=== PATIENT | female | born 1955 | race Caucasian/White ===

== ENCOUNTER → 2020-10-03 | Outpatient (CLI) | payer BC ==
[~2020-10-03] MED LIST: ALTACE2.5 MG PO; ASPIR 8181 MG PO; EFFIENT10 MG PO; IMDUR 30 MG TAB30 M1 PO; IMODIUM MULTI-1 EACH PO; LIPITOR40 MG PO; LOPERAMIDE1 MG/7.5 M PO; METOPROLOL SUCC25 M1 PO; NAPROXEN SODIU220 M2 PO; NITROGLYCERIN0.4 MG SL; TOPROL XL25 MG PO; TOPROL XL50 MG PO
== END ==
LOC: SJCVCIMAG 07:29
PROVIDERS: ATTEND Nuclear Medicine Nuclear Cardiology
DX: I70.201 Unspecified atherosclerosis of native arteries of extremities, right leg (principal); I72.2 Aneurysm of renal artery; M79.661 Pain in right lower leg; M79.662 Pain in left lower leg

== ENCOUNTER → 2020-10-09 | Outpatient (CLI) | payer BC | LOC: SJCVCIMAG 09:16 | PROVIDERS: ATTEND Nuclear Medicine Nuclear Cardiology | DX: I08.2 Rheumatic disorders of both aortic and tricuspid valves (principal); I27.20 Pulmonary hypertension, unspecified; I25.10 Atherosclerotic heart disease of native coronary artery without angina pectoris; I25.2 Old myocardial infarction; Z95.5 Presence of coronary angioplasty implant and graft ==

== ENCOUNTER 2020-10-19 08:00 | Inpatient (IN) | payer BC ==
[~2020-10-19] VITALS: Ht 162.6 cm; Wt 75.2 kg
[2020-10-19] VITALS (32 sets, daily range): BP systolic 84–124; BP diastolic 48–78
[2020-10-19 08:53] LABS: HEMATOCRIT 42.4 % (37.0-47.0); HEMOGLOBIN 14.1 gm/dL (12.0-15.0); MCH 32.1 pg (26.0-34.0); MCHC 33.3 g/dL (28.0-37.0); MCV 96.3 fL (80.0-100.0); RBC 4.41 mil/uL (4.20-5.00); RDW 14.7 % (10.5-14.5); WBC 9.9 thou/uL (4.0-11.0)
[2020-10-19 09:05] LABS: CALCIUM 9.1 mg/dL (8.5-10.1); CREATININE 0.9 mg/dL (0.6-1.0); POTASSIUM 3.9 mmol/L (3.5-5.1)
[2020-10-19] MEDS ORDERED: BIOTIN1 M1 PO (09:13)
[2020-10-19] MEDS ORDERED: FOSAMAX 70 MG T70 MG PO (09:13)
[2020-10-19] MEDS ORDERED: CRESTOR20 MG PO (09:19)
[2020-10-19] MEDS ORDERED: OMEPRAZOLE 20 M20 M1 PO (09:21)
[2020-10-19] MEDS ORDERED: CLARITIN10 M2 PO (09:21)
[2020-10-19 12:29] LABS: HEMATOCRIT 27.4 % (37.0-47.0)
[2020-10-19 13:44] LABS: HEMATOCRIT 35.5 % (37.0-47.0)
[2020-10-19 13:45] LABS: HEMOGLOBIN 11.3 gm/dL (12.0-15.0)
[2020-10-19 15:42] LABS: HEMOGLOBIN 10.9 gm/dL (12.0-15.0); MCH 31.5 pg (26.0-34.0); MCV 98.3 fL (80.0-100.0); RBC 3.47 mil/uL (4.20-5.00); RDW 14.9 % (10.5-14.5); WBC 14.1 thou/uL (4.0-11.0)
[2020-10-19] MEDS ORDERED: CLOPIDOGREL75 MG PO (16:29)
--- NOTE | 2020-10-19 17:58 | NUR ---
PATIENT ARRIVES TO ICU AT 1457 FROM COMPLIANCE REPRESENTATIVE DEALER. PATIENT EXPERIENCES HYPOTENSION AND BLEEDING DURING PROCEDURE. PATIENT HAD A RIGHT COMMON ILIAC PERFERATION. PATIENT HGB 10.1. BLOOD PRESSURE STABLE. SBP 90-110'S. MAPS >65. PAIN MEDICATION GIVEN PRN X1.
[2020-10-20] VITALS (7 sets, daily range): BP systolic 98–113; BP diastolic 54–64
[2020-10-20 03:54] LABS: CALCIUM 7.8 mg/dL (8.5-10.1); CREATININE 0.8 mg/dL (0.6-1.0); POTASSIUM 4.2 mmol/L (3.5-5.1)
[2020-10-20 04:34] LABS: HEMATOCRIT 29.1 % (37.0-47.0); HEMOGLOBIN 9.2 gm/dL (12.0-15.0); MCH 31.7 pg (26.0-34.0); MCHC 31.6 g/dL (28.0-37.0); RBC 2.91 mil/uL (4.20-5.00); RDW 15.1 % (10.5-14.5); WBC 11.6 thou/uL (4.0-11.0)
--- NOTE | 2020-10-20 05:04 | NUR ---
Patient was very stable overnight. Heart rate and rhythm stable; sinus in the 80's. Blood pressures stable; systolics in the low 100's. No pain. continued on 2l per NC overnight; 87-88% on room air while asleep. No nausea. Bilateral groins stable; dressings dry and intact, no hematoma. Pulses good. voiding adequate amounts per bedpan. AM labs noted. Hgb stable at 9.2. See documentation on interventions for assessment details. Patient is progressing towards goals.
--- NOTE | 2020-10-20 17:46 | NUR ---
PT ARRIVED TO UNIT FROM ICU APPROX 1615 PT ALERT ORIENTED VSS DENIES PAIN O2 SATS WNL 2L O2. FRIEND AT BEDSIDE. TELE STRIP PRINTED-ST. R AND L GROIN SITES REMAIN CDI, NO HEMTOMAS, SOFT. FOLLOW POC. WILL PASS ON REPORT TO KAYLIE RN.
[2020-10-21 03:24] LABS: HEMATOCRIT 24.3 % (37.0-47.0); HEMOGLOBIN 8.1 gm/dL (12.0-15.0); MCH 32.3 pg (26.0-34.0); MCHC 33.5 g/dL (28.0-37.0); MCV 96.6 fL (80.0-100.0); RBC 2.52 mil/uL (4.20-5.00); RDW 13.9 % (10.5-14.5); WBC 10.3 thou/uL (4.0-11.0)
[2020-10-21 06:05] VITALS: BP 102/59
--- NOTE | 2020-10-21 07:22 | NUR ---
ASSESSMENTS CHARTED, MEDS CHARTED GIVEN. PATIENT C/O ABDOMINAL PAIN DURING SHIFT. IS CONCERNED ABOUT GOING HOME WITH HER PAIN NOT UNDER CONTROL. BOTH GROIN SITES ARE CLEAN DRY AND INTACT. HGB PRIOR TO PROCEDURE WAS 14.2, AFTER PROCEDURE IT WAS 10.9. HER HGB HAS CONTINUED TO DROP AND IS NOW DOWN TO 8.1. FALL PRECAUTIONS IN PLACE DURING SHIFT.
[2020-10-21 08:02] VITALS: BP 109/60
[2020-10-21 09:36] LABS: CALCIUM 8.2 mg/dL (8.5-10.1); CREATININE 0.8 mg/dL (0.6-1.0); POTASSIUM 3.8 mmol/L (3.5-5.1)
--- NOTE | 2020-10-21 11:38 | NUR ---
AAOX4. CALM, COOPERATIVE. DISCHARGE DELAYED UNTIL TOMORROW D/T FALLING HGB AND PERSISTENT OXYGEN REQUIREMENTS. VIOLENT COUGH AT TIMES. FALL PRECAUTIONS IN PLACE. SR/ST WITH PAC'S PER TELE.
[2020-10-21 11:58] VITALS: BP 106/61
[2020-10-21 15:37] VITALS: BP 114/61
[2020-10-21 20:15] VITALS: BP 94/56
--- NOTE | 2020-10-22 02:40 | NUR ---
ASSESSMENTS CHARTED, MEDS CHARTED GIVEN. PATIENT'S PAIN LEVEL IS IMPROVING. NOW AT 2OR 310. PATIENT STILL ON 4 LITERS OXYBEN, NEEDS 5 WHEN AMBULATING. PATIENT STILL HAS NOT HAD A BOWEL MOVEMENT. WOULD LIKE A MILD LAXATIVE TO HELP. PLAN OF CARE IS TO CHECK CBC IN THE AM FOR HGB LEVEL, IF STABLE, PATIENT WILL PROBABLY DISCHARGE TODAY. FALL PRECAUTIONS IN PLACE DURING SHIFT.
[2020-10-22 03:05] LABS: HEMATOCRIT 23.1 % (37.0-47.0); HEMOGLOBIN 7.7 gm/dL (12.0-15.0); MCH 32.3 pg (26.0-34.0); MCHC 33.5 g/dL (28.0-37.0); MCV 96.5 fL (80.0-100.0); RBC 2.39 mil/uL (4.20-5.00); RDW 14.1 % (10.5-14.5); WBC 10.7 thou/uL (4.0-11.0)
[2020-10-22 04:45] VITALS: BP 107/57
[2020-10-22 07:15] VITALS: BP 99/66
--- NOTE | 2020-10-22 08:11 | NUR ---
ASSUMED PT CARE AT 0700. PT RESTING. ASSESSMENT PERFORMED AND CHARTED. VSS. WILL CONTINUE TO MONITOR AND FOLLOW POC.
[2020-10-22 08:22] LABS: % SATURATION 10 % (20-39); IRON 22 ug/dL (50-170); TIBC 215 ug/dL (250-450)
[2020-10-22 10:55] VITALS: BP 89/55
--- NOTE | 2020-10-22 11:41 | NUR ---
PT SITTING IN BED, NASAL CANNULA IS NOT ON PATIENTS FACE. VSS. WILL CONTINUE TO MONITOR AND FOLLOW POC.
--- NOTE | 2020-10-22 12:23 | CATHLAB ---
[facility] [place] [address] INVASIVE PROCEDURE REPORT Name: EMMY ZAVALA Room #: 200-I ADM IN M.R.#: [id number] Admission: 10/19/20 Attend Phys: Jg Jaramillo MD, Discharge: Date of : 53 Report #: [id number] THIS REPORT FOR: cc: Yajaira Ceron MD,Jg Rolon MD, MD [facility] ~ APPROVED REPORT Study performed: 10/19/2020 11:37:36 Patient Details Patient Status: Out-Patient Room #: The patient is a 65 year-old female Event Personnel Savage Ramos Interventional Radiologist, Savannah Horvath RN RN, Brandie Luque RTR Scrub, Martín Jain RTR Monitor, Jg Jaramillo Link Wire Fabric Machine Tender, Jerry Franco RTR Storage Battery Inspector And Tester, Mery Tuttle RTR, GILL BOX OPERATOR Storage Battery Inspector And Tester Procedures Performed Left Heart Cath w/or w/o Coronaries [id number] [facility] [address]12 Initial Mod Sed Same Phys/QHP Gr5y 280719 68786 Mod Sed Same Phys/QHP Ea 400054 Hemostasis w/ Mynx Procedure Narrative The was infiltrated with 1% Lidocaine subcutaneous anesthesia. A SHEATH BRITE-TIP 6F X 23CM ([id number]) sheath was inserted into the RFA^. Coronary angiography was performed using coronary diagnostic catheters. The right coronary system was accessed and visualized with a JR4 catheter. The left coronary system was accessed and visualized with a JL4 catheter. The left ventricle was accessed and visualized with a PIGTAIL catheter. Left ventricular/Aortic Valve gradient assessed via catheter pullback. Left ventriculogram was performed in 30 degree projection. Pre-demployment femoral angiogram was performed . Closure device was deployed with a 6 Fr MYNX CONTROL 6F/7F L#[id number]. There was no hematoma. This was a combination case for a lower extremity run-off with Dr. Savage Ramos. Intraoperative Conscious Sedation Sedation start time: 1003 Case end Time: 1226 Fentanyl 300 mcg Versed 2 mg [facility] [address] [place] [address] INVASIVE PROCEDURE REPORT Name: EMMY ZAVALA Room #: 200-I [facility]#: [id number] Admission: 10/19/20 Attend Phys: Jg Jaramillo, Discharge: Date of : 53 Report #: [id number] Fluoro Time: 24.51 minutes Dose: DAP 33048.50 cGycm2 3278 mGy Contrast Type and Amount: Visipaque 230 ml Hemodynamics The aortic pressure is 135/71 mmHg with a mean of 70 mmHg. The left ventricular pressure is 132/8 mmHg with a mean of mmHg. The left ventricular end diastolic pressure is 18 mmHg. PCI Technique Lesion Percutaneous coronary intervention was performed on the Common iliac. Conclusion #1. Normal left ventricular size inferior basilar hypokinesis EF 45% range. #2 left main short free of disease giving rise to LAD and circumflex. #3 the LAD with mild to moderate irregularity and calcification proximally. Diagonal branch mildly diseased no occlusive disease. #4 circumflex OM with an eccentric proximal lesion of 50 to 60% and then the first OM is large bifurcating there is also 5060% that bifurcation there is a left to right collateralization. #5 dominant right is occluded proximally previously placed per proximal stent looks to be this occludes mid vessel and the PDA is filled via the left system and some collaterally. Recommendations and plan: Continue aggressive risk factor modification. No indication for coronary intervention. See Dr. Ramos's dictation for peripheral intervention report. <ELECTRONICALLY SIGNED> By: Jg Jaramillo MD, [facility] 10/22/20 1223 1223 1223 Jg Jaramillo MD, FACC /INF
[2020-10-22 13:34] LABS: HEMATOCRIT 24.5 % (37.0-47.0); HEMOGLOBIN 8.1 gm/dL (12.0-15.0); MCH 32.2 pg (26.0-34.0); MCHC 33.2 g/dL (28.0-37.0); MCV 96.8 fL (80.0-100.0); RBC 2.53 mil/uL (4.20-5.00); RDW 14.2 % (10.5-14.5); WBC 9.6 thou/uL (4.0-11.0)
[2020-10-22 15:02] VITALS: BP 93/52
--- NOTE | 2020-10-22 16:02 | NUR ---
PT HAS D/C ORDERS, KAILA BAUER CM IS WORKING ON GETTING HOME OXYGEN FOR PATIENT. PATIENT IS SITTING UP IN BED, TALKING TO SON. WILL CONTINUE TO MONITOR AND FOLLOW PLAN OF CARE UNITL D/C.
[2020-10-22 16:44] VITALS: BP 93/52
[2020-10-22 16:54] VITALS: BP 93/52
--- NOTE | 2020-10-22 17:20 | NUR ---
PT DISCHARGING TODAY TO HOME WITH HOME O2 REFERRAL FAXED TO [facility] RECEIVED CONFIRMATION AND HERI FROM [facility] WILL DROP OFF TANK FOR DC HOME.
== END 2020-10-22 18:36 | disposition home or self-care (01) | DRG 252 ==
LOC: CATH 08:00 → 2N 12:34 → ICU 12:34 → CATH 13:53 → 2N 10-20 16:05
PROVIDERS: Nuclear Medicine Nuclear Cardiology; Nurse Practitioner; Nurse Practitioner Adult Health; ADMIT Internal Medicine Cardiovascular Disease; ATTEND Internal Medicine Cardiovascular Disease
PROC: 047C3DZ Dilation of Right Common Iliac Artery with Intraluminal Device, Percutaneous Approach (ICD-10-PCS; principal; 2020-10-19)
PROC: B215YZZ Fluoroscopy of Left Heart using Other Contrast (ICD-10-PCS; principal; 2020-10-19)
PROC: 047H3DZ Dilation of Right External Iliac Artery with Intraluminal Device, Percutaneous Approach (ICD-10-PCS; principal; 2020-10-19)
PROC: B41D1ZZ Fluoroscopy of Aorta and Bilateral Lower Extremity Arteries using Low Osmolar Contrast (ICD-10-PCS; principal; 2020-10-19)
PROC: B4181ZZ Fluoroscopy of Bilateral Renal Arteries using Low Osmolar Contrast (ICD-10-PCS; principal; 2020-10-19)
PROC: B211YZZ Fluoroscopy of Multiple Coronary Arteries using Other Contrast (ICD-10-PCS; principal; 2020-10-19)
PROC: 4A023N7 Measurement of Cardiac Sampling and Pressure, Left Heart, Percutaneous Approach (ICD-10-PCS; principal; 2020-10-19)
DX: I74.5 Embolism and thrombosis of iliac artery (principal); J96.20 Acute and chronic respiratory failure, unspecified whether with hypoxia or hypercapnia; D62 Acute posthemorrhagic anemia; I25.10 Atherosclerotic heart disease of native coronary artery without angina pectoris; I73.9 Peripheral vascular disease, unspecified; E78.00 Pure hypercholesterolemia, unspecified; Z86.718 Personal history of other venous thrombosis and embolism
CPT/HCPCS: 10081; 10203

== ENCOUNTER → 2021-02-21 | Outpatient (CLI) | payer BC ==
[~2021-02-21] MED LIST changes: +BIOTIN1 M1 PO; +CLARITIN10 M2 PO; +CLOPIDOGREL75 MG PO; +CRESTOR20 MG PO; +FOSAMAX 70 MG T70 MG PO; +OMEPRAZOLE 20 M20 M1 PO
== END ==
LOC: SJCVCIMAG 07:15
PROVIDERS: ATTEND Internal Medicine Cardiovascular Disease
DX: I73.9 Peripheral vascular disease, unspecified (principal); I25.89 Other forms of chronic ischemic heart disease; I70.8 Atherosclerosis of other arteries; M79.604 Pain in right leg; M79.605 Pain in left leg; F17.200 Nicotine dependence, unspecified, uncomplicated; Z95.828 Presence of other vascular implants and grafts

== ENCOUNTER → 2021-03-07 | Outpatient (CLI) | payer BC ==
[~2021-03-07] VITALS: Ht 160 cm; Wt 72.7 kg
[~2021-03-07] MED LIST changes: +CALCIUM + D3 E1 EACH PO
[2021-03-07 07:41] VITALS: BP 113/93
[2021-03-07 07:45] LABS: HEMATOCRIT 40.4 % (37.0-47.0); HEMOGLOBIN 13.6 gm/dL (12.0-15.0); MCH 31.5 pg (26.0-34.0); MCHC 33.6 g/dL (28.0-37.0); MCV 93.7 fL (80.0-100.0); RBC 4.31 mil/uL (4.20-5.00); RDW 14.9 % (10.5-14.5); WBC 9.6 thou/uL (4.0-11.0)
[2021-03-07 07:58] LABS: CALCIUM 8.7 mg/dL (8.5-10.1); CREATININE 0.9 mg/dL (0.6-1.0); POTASSIUM 3.7 mmol/L (3.5-5.1)
== END | disposition home or self-care (01) ==
LOC: CATH 06:38
PROVIDERS: ATTEND Nuclear Medicine Nuclear Cardiology
DX: I70.211 Atherosclerosis of native arteries of extremities with intermittent claudication, right leg (principal); I70.1 Atherosclerosis of renal artery; M79.604 Pain in right leg; I10 Essential (primary) hypertension; I25.10 Atherosclerotic heart disease of native coronary artery without angina pectoris; E78.5 Hyperlipidemia, unspecified; I25.2 Old myocardial infarction; K21.9 Gastro-esophageal reflux disease without esophagitis; M81.0 Age-related osteoporosis without current pathological fracture; F17.210 Nicotine dependence, cigarettes, uncomplicated; Z98.890 Other specified postprocedural states; Z79.899 Other long term (current) drug therapy; Z85.41 Personal history of malignant neoplasm of cervix uteri; Z90.710 Acquired absence of both cervix and uterus; Z88.0 Allergy status to penicillin; Z88.8 Allergy status to other drugs, medicaments and biological substances

== ENCOUNTER → 2021-07-03 | Outpatient (CLI) | payer BC | LOC: SJCVCIMAG 07:13 | PROVIDERS: ATTEND Internal Medicine Cardiovascular Disease | DX: R07.9 Chest pain, unspecified (principal); I73.9 Peripheral vascular disease, unspecified; M79.604 Pain in right leg; M79.605 Pain in left leg; I25.10 Atherosclerotic heart disease of native coronary artery without angina pectoris; E78.00 Pure hypercholesterolemia, unspecified; E78.1 Pure hyperglyceridemia; E78.5 Hyperlipidemia, unspecified; F17.210 Nicotine dependence, cigarettes, uncomplicated; Z95.818 Presence of other cardiac implants and grafts; Z88.0 Allergy status to penicillin; Z88.8 Allergy status to other drugs, medicaments and biological substances; Z79.82 Long term (current) use of aspirin; Z79.899 Other long term (current) drug therapy ==